=== PATIENT | female | born 1980 ===

== ENCOUNTER 2024-05-13 20:00 | Outpatient (CLI) | payer OTHER, SELFPAY | END 2024-05-13 20:01 | disposition home or self-care (01) | LOC: SLEEP 05-14 06:28 | PROVIDERS: Visit Provider Specialist | DX: G47.33 Obstructive sleep apnea (adult) (pediatric) (principal); G47.36 Sleep related hypoventilation in conditions classified elsewhere | CPT/HCPCS: 95810 ==